=== PATIENT | female | born 1975 | race Caucasian/White ===

== ENCOUNTER 2016-10-30 14:57 | Emergency (ER) | payer OTHER ==
[~2016-10-30 14:57] MED LIST: BUSPIRONE HCL30 MG PO; COLACE 100MG C100 MG PO; IBUPROFEN600 MG PO; LORTAB 5-325 M1 EACH PO; MACROBID 100 M100 MG PO; NEURONTIN 300300 MG PO; PHENERGAN 12.12.5 M1 PO; PROZAC40 MG PO; SEROQUEL100 MG PO; VISTARIL 25 MG25 MG PO
[2016-10-30 16:14] LABS: HEMOGLOBIN 14.3 gm/dl (12.3-15.3); RED BLOOD COUNT 4.62 M/UL (4.00-5.10); WHITE BLOOD COUNT 6.2 K/UL (4.5-11.0)
[2016-10-30 16:39] LABS: BUN/CREATININE RATIO 11 (0-10)
== END 2016-10-30 18:30 | disposition home or self-care (01) ==
LOC: ER1 14:57
PROVIDERS: Preventive Medicine Occupational Medicine
DX: F41.9 Anxiety disorder, unspecified (principal); F32.9 Major depressive disorder, single episode, unspecified; F17.210 Nicotine dependence, cigarettes, uncomplicated
CPT/HCPCS: 36415; 70450; 80053; 80307; 81001; 85025; 96361; 96374; 99284; J2060

== ENCOUNTER 2021-01-26 20:20 | Emergency (ER) | payer OTHER ==
[~2021-01-26 20:20] MED LIST changes: +FLAGYL500 MG PO; +FLEXERIL 10 MG10 MG PO; +GLUCOPHAGE500 MG PO; +PERCOCET 10-321 EACH PO; +PHENERGAN 12.12.5 MG PR; +TORADOL 10 MG T10 MG PO; +Voltaren Gel 1 % TOP; +ZANAFLEX4 MG PO; +ZOFRAN ODT 4 MG4 MG PO; +ZOFRAN4 MG PO
[2021-01-26] MEDS ORDERED: MOBIC15 MG PO (22:45)
== END 2021-01-26 23:30 | disposition home or self-care (01) ==
LOC: ER1 20:20
DX: S62.521A Displaced fracture of distal phalanx of right thumb, initial encounter for closed fracture (principal); E11.9 Type 2 diabetes mellitus without complications; F17.200 Nicotine dependence, unspecified, uncomplicated; W10.9XXA Fall (on) (from) unspecified stairs and steps, initial encounter; Y92.009 Unspecified place in unspecified non-institutional (private) residence as the place of occurrence of the external cause
CPT/HCPCS: 73140; 99283

== ENCOUNTER 2021-01-28 12:08 | Emergency (ER) | payer OTHER ==
[~2021-01-28 12:08] MED LIST changes: +MOBIC15 MG PO
[2021-01-28] MEDS ORDERED: IBUPROFEN600 MG PO (14:05)
[2021-01-28] MEDS ORDERED: PERCOCET 5/325 T1 EA PO (14:05)
== END 2021-01-28 14:14 | disposition home or self-care (01) ==
LOC: ER1 12:08
DX: S62.501A Fracture of unspecified phalanx of right thumb, initial encounter for closed fracture (principal); X58.XXXA Exposure to other specified factors, initial encounter
CPT/HCPCS: 99283

== ENCOUNTER 2021-07-09 08:57 | Emergency (ER) | payer OTHER ==
[~2021-07-09 08:57] MED LIST changes: +PERCOCET 5/325 T1 EA PO
[2021-07-09 10:11] LABS: HEMOGLOBIN 15.4 gm/dl (12.3-15.3); RED BLOOD COUNT 4.94 M/UL (4.00-5.10); WHITE BLOOD COUNT 6.7 K/UL (4.5-11.0)
[2021-07-09 10:30] LABS: BUN/CREATININE RATIO 13 (0-10)
[2021-07-09] MEDS ORDERED: IBUPROFEN600 MG PO (14:07)
== END 2021-07-09 14:55 | disposition home or self-care (01) ==
LOC: ER1 08:57
PROVIDERS: Physician Assistant
DX: R91.1 Solitary pulmonary nodule (principal); R07.9 Chest pain, unspecified; Z20.822 Contact with and (suspected) exposure to COVID-19; E11.9 Type 2 diabetes mellitus without complications; F17.200 Nicotine dependence, unspecified, uncomplicated
CPT/HCPCS: 71045; 73030; 80053; 82550; 82553; 83874; 84484; 85025; 85379; 93005; 96374; 96375; 99285; J2270; J2405; J7030; Q9967; U0002

== ENCOUNTER 2022-02-14 15:12 | Emergency (ER) | payer OTHER ==
[2022-02-14 15:39] LABS: HEMOGLOBIN 15.4 gm/dl (12.3-15.3); RED BLOOD COUNT 4.99 M/UL (4.00-5.10); WHITE BLOOD COUNT 6.5 K/UL (4.5-11.0)
[2022-02-14 15:59] LABS: BUN/CREATININE RATIO 16 (0-10)
[2022-02-14] MEDS ORDERED: MECLIZINE HCL25 MG PO (17:33)
[2022-02-14] MEDS ORDERED: ZOFRAN ODT 4 MG4 MG PO (17:34)
== END 2022-02-14 18:18 | disposition home or self-care (01) ==
LOC: ER1 15:12
PROVIDERS: Emergency Medicine
DX: U07.1 COVID-19 (principal); E11.9 Type 2 diabetes mellitus without complications; F17.210 Nicotine dependence, cigarettes, uncomplicated; Z90.49 Acquired absence of other specified parts of digestive tract
CPT/HCPCS: 71045; 80053; 81001; 83690; 85025; 93005; 96372; 99285; J3030; U0002